=== PATIENT | male | born 1945 | race Caucasian/White ===

== ENCOUNTER → 2019-11-14 | Outpatient (CLI) | payer OTHER ==
--- NOTE | 2019-11-14 08:28 | REP ---
CT of the chest without IV contrast: Comparison is the PA and lateral plain film study 10/20/2014. There are no other comparisons. There is a mass with irregular margins in the superior segment right lower lobe posteriorly measuring 2.2 cm transversely by 2.9 cm craniocaudad by 1.9 cm AP. The lung parenchyma is almost entirely replaced by a bulla in the lower lobes bilaterally , lingula and right middle lobe and in the subpleural upper lobes bilaterally. There are no infiltrates or pleural effusions. There is no mediastinal or axillary lymph node enlargement. The study is insensitive for hilar lymph node enlargement in the absence of IV contrast. The unenhanced thoracic aorta is unremarkable except for occasional calcified atheroma. Cardiac size is normal. There is no pericardial effusion. There is calcified atheroma in the coronary arteries. The visualized upper abdominal contents are unremarkable. There is no adrenal mass. There are calcifications in the right renal hilus, likely vascular atheroma. No hydronephrosis and the visualized renal upper poles. Impression: There is a 2.9 cm mass with irregular margins in the superior segment of the right lower lobe. Carcinoma is a primary diagnostic consideration. PET scan might be considered for further evaluation. Lung parenchyma is almost entirely replaced by a bulla in the lower lobes bilaterally, right middle lobe and lingular segment of the left upper lobe. There are bulla in the upper lobes predominantly subpleural bilaterally. Electronically Signed by Krish Grande MD 11/14/2019 08:19 A
== END ==
LOC: M RAD 06:57
PROVIDERS: ATTEND Internal Medicine
DX: R91.8 Other nonspecific abnormal finding of lung field (principal); J84.115 Respiratory bronchiolitis interstitial lung disease

== ENCOUNTER 2020-06-21 21:42 | Inpatient (IN) | payer OTHER ==
[~2020-06-21] VITALS: Ht 167.6 cm; Wt 68.2 kg
[2020-06-21] MEDS ORDERED: OXYC-517 (22:30)
[2020-06-21] MEDS ORDERED: FENT12DI8 (22:30)
[2020-06-21] MEDS ORDERED: SCOPOLAMINE 1MG TRANSDERMAL PATCH TOP SCH (23:00)
[2020-06-21] MEDS ORDERED: MORPHINE 10MG/0.5ML ORAL CONCENTRATE SOLUTION U/D SL PRN (23:00)
--- NOTE | 2020-06-21 23:10 | HPEPDOC ---
[facility] Medical History & Physical Date of Admission Jun 21, 2020 Date of Service: Jun 21, 2020 Attending Physician: RANGEL GARCIA MD History and Physical TIME OF SERVICE: 1155 PM CHIEF COMPLAINT: Altered mental status HISTORY OF PRESENT ILLNESS: The majority of the history is obtained from Maykel Caldwell. The patient was unable to provide any meaningful history. This 74-year-old was brought to the hospital by his children. He has history of end-stage lung cancer and is being treated with pain meds at home by providers at the [facility]. His children found him at home lying on the floor and confused and brought him to the hospital. When Maykel Caldwell talked with the patient and his son, the patient was more lucid; the patient made it clear that he didn't' want additional testing, and the patient and his children agreed to transition the patient to METAL FURRER status with plans to establish care with the hospice team. Just prior to my assessment the patient tried to get up and walk into the hallway in order to find his way to the bathroom, while he was still connected to the blood pressure cuff and pulse oximetry machine. He didn't have socks on his feet and unfortunately slipped and fell. As a result of of the fall, he developed an abrasion on his left wrist. At the time of my evaluation, the patient was aware that he was at [facility], but provided answers that were not congruent to the topic of the conversation when asked him additional questions. He admitted to having cancer and added that his uncle also had cancer. I called the pateitns' daughter to inform her that her father had a fall but there was no response. EREVIEW OF SYSTEMS: unobtainable because the patient was confused PAST MEDICAL/ SURGICAL HISTORY: advanced lung cancer cancer SOCIAL HISTORY: unobtainable FAMILY HISTORY: patient's uncle had cancer ALLERGIES: Please see below. HOME MEDICATIONS: Please see below. PHYSICAL EXAMINATION: Vital Signs Date Time Temp Pulse Resp B/P (MAP) Pulse Ox O2 Delivery O2 Flow Rate FiO2 06/21/20 21:42 96.0 69 24 99/75 (83) 95 Room Air GEN: well-nourished / well developed INTEGUMENT: not flushed/ not jaundice / he has an abrasion at his left wrist HEENT: NCAT / lips acyanotic /mucus membranes moist and pink CVS: RRR/NMRG LUNGS: able to speak full sentences without stopping to take a breath / no coughing / lungs are clear to auscultation bilaterally on room air ABDOMEN: Contour (flat) / soft & not tender with palpation MSK/EXTREMITIES: range of motion intact in all 4 extremities NEURO: speech is not dysarthric PSYCH: alert and oriented to person place but not time / able to understand and follow all commands LABORATORY DATA: n/a IMAGING: n/a MICROBIOLOGY: n/a ASSESSMENT: Mr. Scott is a 74-year-old with a history of lung cancer will be admitted for comfort measures and to establish care with hospice. PLAN: 1. Encephalopathy Possibly delirium ? I am not sure what his baseline is Plan: admit to med surg / per the patient and his children's wishes no additional testing 2. Lung Cancer Plan: METAL FURRER order set w morphine, Ativan, stool softeners, tylenol, no labs, no vitals and no tests / will c/w his home Fentanyl patch and prednisone / will ask the day time team to consult with Hospice and ask them to titrate his pain meds DVT PROPHYLAXIS: n/a DISPOSITION: home w hospice vs placement after more than 2 midnight's stay Home Medications Scheduled Fentanyl (Fentanyl) 25 Mcg Patch.td72, 25 MCG TD Q3RD Lorazepam (Lorazepam) 2 Mg/1 Ml Oral.conc, 0.25 ML PO Q4H Prednisone (Prednisone) 2.5 Mg Tablet, 2.5 MG PO DAILY TAKES WITH 5MG FOR 7.5MG TOTAL Prednisone (Prednisone) 5 Mg Tablet, 5 MG PO DAILY TAKES WITH 2.5MG FOR 7.5MG TOTAL Scheduled PRN Morphine Sulfate (Morphine Sulfate Concentrate) 100 Mg/5 Ml Solution, 0.25 ML PO Q3HP PRN for PAIN Allergies Coded Allergies: No Known Allergies (Verified Allergy, Unknown, 06/21/20) A-FIB/CHADSVASC A-FIB History Current/History of A-Fib/PAF?: No Current PO Anticoag Therapy: No RANGEL GARCIA MD Jun 21, 2020 23:10
[2020-06-21] MEDS ORDERED: LORazepam 2 MG/ML VIAL IV PRN (23:15)
[2020-06-21] MEDS ORDERED: SCOPOLAMINE 1MG TRANSDERMAL PATCH TOP PRN (23:15)
[2020-06-21] MEDS ORDERED: FLEET ENEMA PR PRN (23:15)
[2020-06-21] MEDS ORDERED: ACETAMINOPHEN TAB 650MG DOSE (2X325MG) PO PRN (23:15)
[2020-06-21] MEDS ORDERED: MORPHINE 2 MG/ML 1ML VIAL (J2270) IV PRN (23:15)
[2020-06-21] MEDS ORDERED: ONDANSETRON 4 MG ORAL DISINTEGRATING TAB PO PRN (23:15)
[2020-06-21] MEDS ORDERED: MAALOX 30 ML SUSP *UDC PO PRN (23:15)
[2020-06-21] MEDS ORDERED: MOM 30ML SUSPENSION UDC PO PRN (23:15)
[2020-06-21] MEDS ORDERED: PRED25TA PO (23:53)
[2020-06-21] MEDS ORDERED: MORP1SOL PO (23:53)
[2020-06-21] MEDS ORDERED: PRED5TA PO (23:53)
[2020-06-21] MEDS ORDERED: LORA2CON5 PO (23:53)
[2020-06-21] MEDS ORDERED: FENT1DIS14 TD (23:53)
[2020-06-22 00:16] VITALS: BP 137/95
[2020-06-22] MEDS ORDERED: ONDANSETRON 4 MG ORAL DISINTEGRATING TAB PO PRN (01:00)
[2020-06-22] MEDS ORDERED: MORPHINE 10MG/0.5ML ORAL CONCENTRATE SOLUTION U/D SL PRN (01:00)
[2020-06-22] MEDS: LORazepam 1 MG TAB PO PRN ×2 (01:30→12:12)
[2020-06-22] MEDS ORDERED: fentaNYL 25 MCG/HR PATCH TD SCH (06:00)
[2020-06-22] MEDS ORDERED: FENTANYL REMOVAL DOCUMENTATION MISC XX SCH (06:00)
[2020-06-22] MEDS ORDERED: predniSONE 5 MG TAB PO SCH (09:00)
[2020-06-22] MEDS: predniSONE 2.5 MG TAB PO SCH (09:00)
[2020-06-22] MEDS ORDERED: FLUBLOK(EGG FREE)(QUAD)INFLUENZA VACC 0.5ML SYRINGE 18YRS & OLDER IM ONE (09:00)
[2020-06-22] MEDS ORDERED: ONDANSETRON 4MG/2ML VIAL IV PRN (13:00)
[2020-06-22] MEDS: MORPHINE 2 MG/ML 1ML VIAL (J2270) IV PRN ×3 (13:23→22:30)
[2020-06-22] MEDS: LORazepam 2 MG/ML VIAL IV PRN ×3 (16:42→22:29)
--- NOTE | 2020-06-22 18:25 | IPNPDOC ---
Subjective Date Seen The patient was seen on 06/22/20. Subjective Chief Complaint/HPI Mr. Scott is a 74 year old male with end stage lung cancer on pain medication here with [facility]. Family has made him WIRELESS ENGINEER. This morning he was very lethargic. He was difficult to arouse. Later in the morning, nursing had difficulty giving him PO medication. Medication switched to IV. This afternoon, he was agitated and confused, trying to get out of bed. When I went down to see him again, he was calmed down and sleeping. Neurological: Reports: Confusion Objective Physical Examination General Exam: Positive: No Acute Distress, Other (comfortable) Eye Exam: Negative: Sclera icteric Neck Exam: Positive: Supple Psych Exam: Positive: Other (Confused); Negative: Oriented x 3 Assessment /Plan Assessment Mr. Scott is a 74 year old male with end stage lung cancer on pain medication here with [facility]. Family has made him WIRELESS ENGINEER. No further work up at this time. Patient will be made comfortable. vacuum worker confirmed with patient's daughter WIRELESS ENGINEER status. Patient on waiting list for hospice bed. Possible placement next week. Plan/VTE VTE Prophylaxis Ordered?: No VTE Exclusion Mechanical Proph: Other (WIRELESS ENGINEER) VTE Exclusion Pharmacological: Other (WIRELESS ENGINEER) Plan Advance Directives: Comfort care 1. Comfort measures only - IV morphine PRN pain/air hunger - IV Ativan PRN agitation - Scopolamine patch - Fentanyl patch 2. Lung cancer - WIRELESS ENGINEER status 3. Toxic metabolic encephalopathy vs delirium - No further workup per family - WIRELESS ENGINEER status Dispo: Pending placement in hospice bed VS, I&O, 24H, Fishbone Vital Signs/I&O Vital Signs Date Time Temp Pulse Resp B/P (MAP) Pulse Ox O2 Delivery O2 Flow Rate FiO2 06/22/20 13:33 20 06/22/20 00:31 107 97 Room Air 06/22/20 00:16 137/95 (109) 06/21/20 21:42 96.0 I&O- Last 24 Hours up to 6 AM 06/22/20 06:00 Intake Total 100 ml Output Total 100 ml Balance 0 ml DEANDRE RICHARDSON DO Jun 22, 2020 18:25
[2020-06-23] MEDS: MORPHINE 2 MG/ML 1ML VIAL (J2270) IV PRN ×5 (00:58→18:47)
[2020-06-23] MEDS: LORazepam 2 MG/ML VIAL IV PRN ×4 (00:58→10:54)
[2020-06-23] MEDS: predniSONE 2.5 MG TAB PO SCH (08:35)
--- NOTE | 2020-06-23 16:54 | IPNPDOC ---
Subjective Date Seen The patient was seen on 06/23/20. Subjective Chief Complaint/HPI Mr. Scott is a 74 year old male with end stage lung cancer on pain medication here with [facility]. This morning, still lethargic. Son, who is healthcare proxy, visited. We discussed about his father. Planned home would be [place] [facility]. Otherwise, we reconfirmed comfort measures only Other systems Unable to obtain due to lethargy Objective Physical Examination General Exam: Positive: Other (Rapid breathing) Eye Exam: Negative: Sclera icteric Neck Exam: Positive: Supple Extremity Exam: Negative: Edema Psych Exam: Positive: Other (lethargy); Negative: Oriented x 3 Assessment /Plan Assessment Mr. Scott is a 74 year old male with end stage lung cancer on pain medication here with [facility]. Family has made him HEADING SAW OPERATOR. No further work up at this time. Patient will be made comfortable. mining support worker confirmed with patient's daughter HEADING SAW OPERATOR status. Patient on waiting list for hospice bed. Possible placement next week. Plan/VTE VTE Prophylaxis Ordered?: No VTE Exclusion Mechanical Proph: Other (HEADING SAW OPERATOR) VTE Exclusion Pharmacological: Other (HEADING SAW OPERATOR) Plan Advance Directives: Comfort care 1. Comfort measures only - IV morphine PRN pain/air hunger - IV Ativan PRN agitation - Scopolamine patch - Fentanyl patch 2. Lung cancer - HEADING SAW OPERATOR status 3. Toxic metabolic encephalopathy vs delirium - No further workup per family - HEADING SAW OPERATOR status Dispo: Pending placement in hospice bed VS, I&O, 24H, Fishbone Vital Signs/I&O Vital Signs Date Time Temp Pulse Resp B/P (MAP) Pulse Ox O2 Delivery O2 Flow Rate FiO2 06/23/20 09:05 3.0 06/23/20 06:19 38 06/22/20 00:31 107 97 Room Air 06/22/20 00:16 137/95 (109) 06/21/20 21:42 96.0 I&O- Last 24 Hours up to 6 AM 06/23/20 06:00 Intake Total 0 ml Output Total 50 ml Balance -50 ml DEANDRE RICHARDSON DO Jun 23, 2020 16:54
--- NOTE | 2020-06-24 18:33 | DS.PDOC ---
Discharge Summary General Date of Admission Jun 21, 2020 at 23:12 Date of Discharge Jun 23, 2020 Attending Physician: DEANDRE RICHARDSON DO Discharge Summary PROCEDURES PERFORMED DURING STAY: None. ADMITTING DIAGNOSES: 1. Advanced lung cancer 2. Encephalopathy 3. MIDDLE SCHOOL SCIENCE TEACHER DISCHARGE DIAGNOSES: 1. Advanced lung cancer 2. Encephalopathy 3. MIDDLE SCHOOL SCIENCE TEACHER COMPLICATIONS/CHIEF COMPLAINT: Comfort Measures Only, Lung Cancer. HISTORY OF PRESENT ILLNESS: Mr. Scott is a 74-year-old with end-stage lung cancer with found altered in the bathroom floor. Due to the patient's altered mental status, most of the history is obtained from Maykel Caldwell. When Maykel Caldwell spoke with the patient and his son, the patient was more lucid. The patient made it clear they did not want any additional testing. The patient and his children agreed to transition the patient to MIDDLE SCHOOL SCIENCE TEACHER status. HOSPITAL COURSE: During his hospitalization, he was made comfortable. The team reached out to hospice, and anticipate possible opening on Thursday. As the weekend progressed, the patient's condition worsened. He stopped being able to take oral medication. His medications are transition to IV. His son visited him this weekend. The son is the healthcare proxy. We discussed patient's MIDDLE SCHOOL SCIENCE TEACHER status and we redid the MOLST. The son said the patient would like his home to be at [facility] on [address] [facility]. On 06/23/2020 at 2030, the patient was pronounced . The night attending was contacted. The family was contacted as well Vital Signs/I&Os Vital Signs Date Time Temp Pulse Resp B/P (MAP) Pulse Ox O2 Delivery O2 Flow Rate FiO2 06/23/20 20:00 3.0 06/23/20 18:47 Nasal Cannula 06/23/20 06:19 38 06/22/20 00:31 107 97 06/22/20 00:16 137/95 (109) 06/21/20 21:42 96.0 I&O- Last 24 Hours up to 6 AM 06/24/20 06:00 Intake Total 0 ml Output Total 0 ml Balance 0 ml Discharge Medications Scheduled Fentanyl (Fentanyl) 25 Mcg Patch.td72, 25 MCG TD Q3RD, (Reported) Lorazepam (Lorazepam) 2 Mg/1 Ml Oral.conc, 0.25 ML PO Q4H, (Reported) Prednisone (Prednisone) 2.5 Mg Tablet, 2.5 MG PO DAILY, (Reported) TAKES WITH 5MG FOR 7.5MG TOTAL Prednisone (Prednisone) 5 Mg Tablet, 5 MG PO DAILY, (Reported) TAKES WITH 2.5MG FOR 7.5MG TOTAL Scheduled PRN Morphine Sulfate (Morphine Sulfate Concentrate) 100 Mg/5 Ml Solution, 0.25 ML PO Q3HP PRN for PAIN, (Reported) Allergies Coded Allergies: No Known Allergies (Verified Allergy, Unknown, 06/21/20) DEANDRE RICHARDSON DO Jun 24, 2020 18:33
== END 2020-06-23 22:30 | disposition expired | DRG 951 ==
LOC: M ED 21:42 → M ED INP 23:12 → M MSPAV 06-22 00:42
PROVIDERS: ADMIT Internal Medicine; ATTEND Internal Medicine
DX: Z51.5 Encounter for palliative care (principal); J96.00 Acute respiratory failure, unspecified whether with hypoxia or hypercapnia; G93.40 Encephalopathy, unspecified; C34.90 Malignant neoplasm of unspecified part of unspecified bronchus or lung; Z66 Do not resuscitate; Z79.52 Long term (current) use of systemic steroids; Z79.899 Other long term (current) drug therapy